=== PATIENT | female | born 1990 | race Caucasian/White ===

== ENCOUNTER 2016-08-20 20:12 | Emergency (ER) | payer OTHER ==
[~2016-08-20] VITALS: Ht 160 cm; Wt 72.0 kg
[~2016-08-20 20:12] MED LIST: AMOXICILLIN500 MG OR; AMOXICILLIN500 MG PO; BENTYL10 MG PO; CEPHALEXIN500 M1 PO; CEPHALEXIN500 MG OR; CLARITHROMYC500 M1 OR; CLARITIN10 M2 PO; DEPO-MEDROL80 MG/ML IM; DOXYCYCL HYC100 M4 PO; FAMVIR500 MG PO; FLEXERIL5 MG PO; IMPLANON68 MG SC; KETOROLAC60 MG/2 ML IJ; LORTAB 10 PO; LORTAB 1010 MG PO; LORTAB 5 OR; LORTAB 5/3255 MG PO; LORTAB 7.5 OR; LORTAB 7.57.5 MG PO; LORTAB5 OR; LORTAB5 PO; MACROBID100 MG OR; MACROBID100 MG PO; MACRODANTIN100 MG OR; MEDDOSEPAK OR; NAPROSYN500 MG PO; NO; NO HOME MEDS; NO MEDS; NORCO1 TA1 PO; ONDANSETRON4 MG OR; ONDANSETRON4 MG PO; PERCOCET 5/325M1 TAB OR; PHENERGAN SUPP RE; PREVACID30 M2 PO; PROMETHAZINE25 M1 RE; PROMETHAZINE25 MG OR; PYRIDIUM200 MG OR; PYRIDIUM200 MG PO; REGLAN10 MG PO; ROBITUSS12 OR; ROBITUSSI2 OR; ROBITUSSIN AC10 ML PO; TORADOL OR; TORADOL PO; ULTRAM50 M1 PO; ULTRAM50 MG OR; UNKNOWN ANTIBIOTIC; ZOFRAN ODT4 MG OR; ZOFRAN ODT4 MG PO; ZOFRAN ODT8 MG SL; ZOFRAN4 M1 OR; ZOVIRAX51 EX
[2016-08-20] MEDS ORDERED: PERCOCET 5/325M1 TAB PO (23:42)
[2016-08-21 00:21] VITALS: BP 116/70
== END 2016-08-20 23:58 | disposition home or self-care (01) | DRG 563 ==
LOC: ED 20:12
DX: S93.401A Sprain of unspecified ligament of right ankle, initial encounter (principal); X50.1XXA Overexertion from prolonged static or awkward postures, initial encounter

== ENCOUNTER 2017-05-18 18:15 | Emergency (ER) | payer OTHER ==
[~2017-05-18] VITALS: Ht 160 cm; Wt 75.0 kg
[~2017-05-18 18:15] MED LIST changes: +PERCOCET 5/325M1 TAB PO
[2017-05-18 21:16] LABS: INFLUENZA A NONE DETECTED (NONE DETECT); INFLUENZA B NONE DETECTED (NONE DETECT)
[2017-05-18 22:07] LABS: URINE BILIRUBIN - DIPSTICK NEGATIVE (NEGATIVE); URINE BLOOD DIPSTICK TRACE-LYSED (NEGATIVE); URINE COLOR YELLOW; URINE GLUCOSE - DIPSTICK NEGATIVE (NEGATIVE); URINE KETONE TRACE mg/dL (NEGATIVE); URINE NITRITE - DIPSTICK NEGATIVE (Negative); URINE PH 5.5 (4.5-8.0); URINE PROTEIN - DIPSTICK NEGATIVE (NEG-TRACE); URINE SPECIFIC GRAVITY >=1.030; URINE UROBILINOGEN - DIPSTICK 0.2 E.U./dL (0.2)
[2017-05-18 22:08] LABS: HCG SERUM/URINE (NEG/POS) NEGATIVE (NEGATIVE)
[2017-05-18 22:09] LABS: URINE BACTERIA RARE hpf; URINE CLARITY CLEAR; URINE LEUK ESTERASE SMALL (NEGATIVE); URINE SQUAMOUS EPITHELIAL CELL FEW EPI/hpf (0-FEW)
[2017-05-18] MEDS ORDERED: CEPHALEXIN500 MG PO (22:15)
[2017-05-18] MEDS ORDERED: ROBITUSSIN AC10 ML PO (22:15)
[2017-05-18 22:27] VITALS: BP 145/94
== END 2017-05-18 22:30 | disposition home or self-care (01) | DRG 153 ==
LOC: ED 18:15
PROVIDERS: Emergency Medicine
DX: J02.9 Acute pharyngitis, unspecified (principal); I88.9 Nonspecific lymphadenitis, unspecified; N39.0 Urinary tract infection, site not specified; F17.210 Nicotine dependence, cigarettes, uncomplicated; H92.01 Otalgia, right ear; R05 Cough; R09.89 Other specified symptoms and signs involving the circulatory and respiratory systems; R51 Headache

== ENCOUNTER 2017-06-13 00:52 | Emergency (ER) | payer OTHER ==
[~2017-06-13] VITALS: Ht 160 cm; Wt 91.6 kg
[~2017-06-13 00:52] MED LIST changes: +CEPHALEXIN500 MG PO
[2017-06-13] MEDS ORDERED: IBUPROFEN600 MG PO (01:13)
[2017-06-13 02:08] LABS: INFLUENZA A NONE DETECTED (NONE DETECT); INFLUENZA B NONE DETECTED (NONE DETECT)
[2017-06-13] MEDS ORDERED: PERCOCET 5/325M1 TAB PO (02:57)
[2017-06-13] MEDS ORDERED: AUGMENTIN875TAB PO (02:57)
[2017-06-13] MEDS ORDERED: CODEINE/GUAIFEN1 SOL PO (02:57)
[2017-06-13 03:12] VITALS: BP 117/79
[2017-06-13] MEDS ORDERED: ZOFRAN4 M1 PO (11:46)
[2017-06-13] MEDS ORDERED: PROAIR HFA108 MCG/AC PO (11:46)
== END 2017-06-13 03:13 | disposition home or self-care (01) | DRG 153 ==
LOC: ED 00:52
PROVIDERS: Emergency Medicine
DX: H66.93 Otitis media, unspecified, bilateral (principal); F17.210 Nicotine dependence, cigarettes, uncomplicated; J40 Bronchitis, not specified as acute or chronic; R05 Cough; R09.81 Nasal congestion; R50.9 Fever, unspecified; R09.89 Other specified symptoms and signs involving the circulatory and respiratory systems; R10.84 Generalized abdominal pain
CPT/HCPCS: Q9967

== ENCOUNTER 2017-06-13 11:17 | Emergency (ER) | payer OTHER ==
[~2017-06-13] VITALS: Ht 160 cm; Wt 90.2 kg
[~2017-06-13 11:17] MED LIST changes: +AUGMENTIN875TAB PO; +CODEINE/GUAIFEN1 SOL PO; +IBUPROFEN600 MG PO
[2017-06-13] MEDS ORDERED: PROAIR HFA108 MCG/AC PO (11:46)
[2017-06-13] MEDS ORDERED: ZOFRAN4 M1 PO (11:46)
[2017-06-13 12:03] VITALS: BP 140/80
[2017-06-13 13:04] LABS: HEMOGLOBIN 15.4 g/dl (12.0-16.0); IMMATURE GRANULOCYTES 0.3 % (0.0-1.0); MEAN CELL VOLUME 90.8 fL CALC (80.0-100.0); MEAN CORPUSCULAR HGB 30.8 pG CALC (26.0-32.0); MEAN CORPUSCULAR HGB CONC 33.9 g/L CALC (32.0-36.0); NEUT# 6.32 thou/uL (2.00-7.15); RED CELL DISTRI WIDTH 12.5 % (11.5-15.5)
[2017-06-13 13:09] LABS: HEMATOCRIT 45.4 % (37.0-47.0)
[2017-06-13 13:21] LABS: ALBUMIN 4.8 g/dL (3.2-5.0); ALKALINE PHOSPHATASE 84 u/l (38-126); ANION GAP 18 (6-22 (CALC)); BILIRUBIN, TOTAL 0.6 mg/dL (0.0-1.4); BUN 16 mg/dL (7-17); BUN/CREATININE RATIO 25 (12-20 (CALC)); CARBON DIOXIDE 24 mmol/l (22-30); CHLORIDE 102 mmol/l (95-108); CREATININE 0.7 mg/dL (0.5-1.0); GFR > 60 ML/MIN (>=60 (CALC)); GFR FOR AFR.AMER. > 60 ML/MIN (>=60 (CALC)); POTASSIUM 3.8 mmol/l (3.5-5.1); SGOT/AST 22 u/l (14-36); SGPT/ALT 39 u/l (9-52); SODIUM 140 mmol/l (137-146); TOTAL PROTEIN 8.1 g/dL (6.3-8.2)
[2017-06-13 13:39] LABS: LIPASE 45 u/l (23-300)
== END 2017-06-13 15:05 | disposition home or self-care (01) | DRG 203 ==
LOC: ED 11:17
PROVIDERS: Family Medicine
DX: J40 Bronchitis, not specified as acute or chronic (principal); F17.210 Nicotine dependence, cigarettes, uncomplicated; R05 Cough; R11.2 Nausea with vomiting, unspecified; R10.84 Generalized abdominal pain
CPT/HCPCS: Q9967

== ENCOUNTER 2017-11-28 12:40 | Emergency (ER) | payer OTHER ==
[~2017-11-28] VITALS: Ht 160 cm; Wt 75.0 kg
[~2017-11-28 12:40] MED LIST changes: +MOTRIN400 MG PO; +PROAIR HFA108 MCG/AC PO; +VOLTAREN1%GEL TOP; +ZOFRAN4 M1 PO
[2017-11-28] MEDS ORDERED: METRONIDAZOLE250 MG PO (13:05)
[2017-11-28 13:56] LABS: HEMATOCRIT 40.6 % (37.0-47.0); HEMOGLOBIN 13.8 g/dl (12.0-16.0); IMMATURE GRANULOCYTES 0.3 % (0.0-5.0); MEAN CELL VOLUME 91.4 fL CALC (80.0-100.0); MEAN CORPUSCULAR HGB 31.1 pG CALC (26.0-32.0); NEUT# 4.19 thou/uL (2.00-7.15); RED BLOOD COUNT 4.44 mill/uL (4.20-5.60); RED CELL DISTRI WIDTH 12.5 % (11.5-15.5)
[2017-11-28 14:23] LABS: ALBUMIN 4.1 g/dL (3.2-5.0); ALKALINE PHOSPHATASE 68 u/l (38-126); ANION GAP 16 (6-22 (CALC)); BILIRUBIN, TOTAL 0.3 mg/dL (0.0-1.4); BUN 17 mg/dL (7-17); BUN/CREATININE RATIO 23 (12-20 (CALC)); CARBON DIOXIDE 24 mmol/l (22-30); CHLORIDE 105 mmol/l (95-108); CREATININE 0.8 mg/dL (0.5-1.0); GFR > 60 ML/MIN (>=60 (CALC)); GFR FOR AFR.AMER. > 60 ML/MIN (>=60 (CALC)); POTASSIUM 3.7 mmol/l (3.5-5.1); SGOT/AST 19 u/l (14-36); SGPT/ALT 35 u/l (9-52); SODIUM 142 mmol/l (137-146); TOTAL PROTEIN 7.1 g/dL (6.3-8.2)
[2017-11-28 15:04] LABS: URINE BILIRUBIN - DIPSTICK NEGATIVE (NEGATIVE); URINE BLOOD DIPSTICK NEGATIVE (NEGATIVE); URINE COLOR YELLOW; URINE GLUCOSE - DIPSTICK NEGATIVE (NEGATIVE); URINE KETONE NEGATIVE (NEGATIVE); URINE LEUK ESTERASE TRACE (NEGATIVE); URINE PROTEIN - DIPSTICK NEGATIVE (NEG-TRACE); URINE SPECIFIC GRAVITY 1.015; URINE UROBILINOGEN - DIPSTICK 0.2 E.U./dL (0.2)
[2017-11-28 15:09] LABS: URINE CLARITY CLEAR; URINE NITRITE - DIPSTICK POSITIVE (Negative)
[2017-11-28 15:19] LABS: URINE RBC 0-2 RBC/hpf (0-5); URINE SQUAMOUS EPITHELIAL CELL FEW EPI/hpf (0-FEW)
[2017-11-28 15:46] LABS: BARBITURATES NEGATIVE (NEGATIVE); COCAINE NEGATIVE (NEGATIVE); METHADONE NEGATIVE (NEGATIVE); OXCYCODONE NEGATIVE (NEGATIVE); TETRAHYDROCANNABIONOL POSITIVE (NEGATIVE); TRICYLIC ANTIDEPRESSANTS NEGATIVE (NEGATIVE)
[2017-11-28] MEDS ORDERED: DOXYCYC MONO100 M1 PO (17:00)
[2017-11-28] MEDS ORDERED: TORADOL PO (17:00)
[2017-11-28 17:27] VITALS: BP 109/69
== END 2017-11-28 17:27 | disposition home or self-care (01) ==
LOC: ED 12:40
PROVIDERS: Emergency Medicine
DX: N73.9 Female pelvic inflammatory disease, unspecified (principal); R10.2 Pelvic and perineal pain; F17.210 Nicotine dependence, cigarettes, uncomplicated

== ENCOUNTER 2018-06-12 15:20 | Emergency (ER) | payer OTHER ==
[~2018-06-12] VITALS: Ht 160 cm; Wt 78.0 kg
[~2018-06-12 15:20] MED LIST changes: +DOXYCYC MONO100 M1 PO; +METRONIDAZOLE250 MG PO
[2018-06-12] MEDS ORDERED: MOTRIN400 MG PO (16:19)
[2018-06-12 16:57] VITALS: BP 129/74
== END 2018-06-12 16:57 | disposition home or self-care (01) ==
LOC: ED 15:20
DX: S93.402A Sprain of unspecified ligament of left ankle, initial encounter (principal); M25.572 Pain in left ankle and joints of left foot; R50.9 Fever, unspecified; R22.42 Localized swelling, mass and lump, left lower limb

== ENCOUNTER 2018-10-05 10:24 | Emergency (ER) | payer OTHER ==
[~2018-10-05] VITALS: Ht 160 cm; Wt 85.0 kg
[2018-10-05] MEDS ORDERED: DOXYCYC MONO100 M2 PO (10:36)
[2018-10-05 11:14] VITALS: BP 141/78
== END 2018-10-05 11:14 | disposition home or self-care (01) ==
LOC: ED 10:24
DX: L05.91 Pilonidal cyst without abscess (principal); F17.200 Nicotine dependence, unspecified, uncomplicated

== ENCOUNTER 2018-10-29 07:15 | Day surgery (SDC) | payer OTHER ==
[~2018-10-29 07:15] MED LIST changes: +DOXYCYC MONO100 M2 PO
[2018-10-29] MEDS ORDERED: PERCOCET 5/325M1 TAB PO (10:19)
[2018-10-29 11:22] VITALS: BP 101/56
== END 2018-10-29 11:35 | disposition home or self-care (01) ==
LOC: ORM 07:15
PROVIDERS: ATTEND Surgery
DX: L05.01 Pilonidal cyst with abscess (principal); F17.210 Nicotine dependence, cigarettes, uncomplicated
CPT/HCPCS: C9290

== ENCOUNTER 2018-11-02 19:18 | Emergency (ER) | payer OTHER ==
[~2018-11-02] VITALS: Ht 160 cm; Wt 80.0 kg
[2018-11-02 19:41] VITALS: BP 129/81
== END 2018-11-02 19:47 | disposition home or self-care (01) ==
LOC: ED 19:18
DX: Z48.01 Encounter for change or removal of surgical wound dressing (principal)

== ENCOUNTER 2019-10-26 12:18 | Emergency (ER) | payer OTHER ==
[~2019-10-26] VITALS: Ht 160 cm; Wt 95.0 kg
[2019-10-26 12:33] VITALS: BP 140/76
[2019-10-26] MEDS ORDERED: MACROBID100 MG PO (12:39)
[2019-10-26 13:15] LABS: HEMATOCRIT 41.1 % (37.0-47.0); HEMOGLOBIN 13.5 g/dl (12.0-16.0); IMMATURE GRANULOCYTES 0.2 % (0.0-5.0); MEAN CELL VOLUME 92.4 fL CALC (80.0-100.0); MEAN CORPUSCULAR HGB 30.3 pG CALC (26.0-32.0); MEAN CORPUSCULAR HGB CONC 32.8 g/dL CAL (32.0-36.0); NEUT# 4.27 thou/uL (2.00-7.15); RED BLOOD COUNT 4.45 mill/uL (4.20-5.60); RED CELL DISTRI WIDTH 12.5 % (11.5-15.5)
[2019-10-26 13:32] LABS: ALBUMIN 4.5 g/dL (3.2-5.0); ALKALINE PHOSPHATASE 75 u/l (38-126); ANION GAP 11 (6-22 (CALC)); BILIRUBIN, TOTAL 0.4 mg/dL (0.0-1.4); BUN 14 mg/dL (7-17); BUN/CREATININE RATIO 21 (12-20 (CALC)); CARBON DIOXIDE 21 mmol/l (22-30); CHLORIDE 105 mmol/l (95-108); CREATININE 0.7 mg/dL (0.5-1.0); GFR > 60 ML/MIN (>=60 (CALC)); GFR FOR AFR.AMER. > 60 ML/MIN (>=60 (CALC)); HCG SERUM/URINE (NEG/POS) NEGATIVE (NEGATIVE); LIPASE 75 u/l (23-300); POTASSIUM 3.8 mmol/l (3.5-5.1); SGOT/AST 30 u/l (14-36); TOTAL PROTEIN 7.1 g/dL (6.3-8.2); URINE BILIRUBIN - DIPSTICK NEGATIVE (NEGATIVE); URINE BLOOD DIPSTICK NEGATIVE (NEGATIVE); URINE COLOR YELLOW; URINE GLUCOSE - DIPSTICK NEGATIVE (NEGATIVE); URINE KETONE NEGATIVE (NEGATIVE); URINE NITRITE - DIPSTICK NEGATIVE (Negative); URINE PROTEIN - DIPSTICK NEGATIVE (NEG-TRACE); URINE SPECIFIC GRAVITY 1.025; URINE UROBILINOGEN - DIPSTICK 0.2 E.U./dL (0.2)
[2019-10-26 13:33] LABS: URINE LEUK ESTERASE SMALL (NEGATIVE)
[2019-10-26 13:35] LABS: SODIUM 133 mmol/l (137-146)
[2019-10-26 13:41] LABS: URINE BACTERIA RARE hpf; URINE SQUAMOUS EPITHELIAL CELL FEW EPI/hpf (0-FEW)
== END 2019-10-26 13:20 | disposition left against medical advice (07) ==
LOC: ED 12:18
DX: R10.31 Right lower quadrant pain (principal); R10.32 Left lower quadrant pain; R11.2 Nausea with vomiting, unspecified; R19.7 Diarrhea, unspecified; F17.200 Nicotine dependence, unspecified, uncomplicated; Z91.19 Patient's noncompliance with other medical treatment and regimen; Z20.828 Contact with and (suspected) exposure to other viral communicable diseases

== ENCOUNTER 2020-04-18 22:29 | Emergency (ER) | payer OTHER ==
[~2020-04-18] VITALS: Ht 160 cm; Wt 72.2 kg
[2020-04-18] MEDS ORDERED: ZOFRAN4 MG/TAB PO (22:55)
[2020-04-18] MEDS ORDERED: PRILOSEC OTC20 MG PO (22:56)
[2020-04-18] MEDS ORDERED: IMITREX25 MG PO (22:56)
[2020-04-18 23:26] LABS: HEMATOCRIT 40.5 % (37.0-47.0); HEMOGLOBIN 13.3 g/dl (12.0-16.0); IMMATURE GRANULOCYTES 0.2 % (0.0-5.0); MEAN CELL VOLUME 91.8 fL CALC (80.0-100.0); MEAN CORPUSCULAR HGB 30.2 pG CALC (26.0-32.0); MEAN CORPUSCULAR HGB CONC 32.8 g/dL CAL (32.0-36.0); NEUT# 3.72 thou/uL (2.00-7.15); RED BLOOD COUNT 4.41 mill/uL (4.20-5.60); RED CELL DISTRI WIDTH 12.8 % (11.5-15.5)
[2020-04-19 00:03] LABS: ALBUMIN 4.2 g/dL (3.2-5.0); ALKALINE PHOSPHATASE 73 u/l (38-126); AMYLASE 42 u/l (30-110); ANION GAP 11 (6-22 (CALC)); BILIRUBIN, TOTAL 0.3 mg/dL (0.0-1.4); BUN 24 mg/dL (7-17); BUN/CREATININE RATIO 25 (12-20 (CALC)); CARBON DIOXIDE 23 mmol/l (22-30); CHLORIDE 109 mmol/l (95-108); CREATININE 0.9 mg/dL (0.5-1.0); GFR > 60 ML/MIN (>=60 (CALC)); GFR FOR AFR.AMER. > 60 ML/MIN (>=60 (CALC)); LIPASE 98 u/l (23-300); POTASSIUM 3.8 mmol/l (3.5-5.1); SGOT/AST 25 u/l (14-36); SODIUM 139 mmol/l (137-146); TOTAL PROTEIN 7.2 g/dL (6.3-8.2)
[2020-04-19 00:33] LABS: TSH, 3RD GENERATION 3.32 uIU/mL (0.47 - 4.68)
[2020-04-19 00:59] LABS: URINE BILIRUBIN - DIPSTICK NEGATIVE (NEGATIVE); URINE BLOOD DIPSTICK NEGATIVE (NEGATIVE); URINE COLOR YELLOW; URINE GLUCOSE - DIPSTICK NEGATIVE (NEGATIVE); URINE KETONE NEGATIVE (NEGATIVE); URINE LEUK ESTERASE NEGATIVE (NEGATIVE); URINE NITRITE - DIPSTICK NEGATIVE (Negative); URINE PROTEIN - DIPSTICK NEGATIVE (NEG-TRACE); URINE SPECIFIC GRAVITY 1.025; URINE UROBILINOGEN - DIPSTICK 0.2 E.U./dL (0.2)
[2020-04-19] MEDS ORDERED: PROVERA10 MG PO (01:22)
[2020-04-19 01:40] VITALS: BP 104/52
== END 2020-04-19 01:43 | disposition home or self-care (01) ==
LOC: ED 22:29
PROVIDERS: Family Medicine
DX: R10.31 Right lower quadrant pain (principal); R10.32 Left lower quadrant pain; N93.8 Other specified abnormal uterine and vaginal bleeding; F17.210 Nicotine dependence, cigarettes, uncomplicated
CPT/HCPCS: Q9967

== ENCOUNTER 2021-02-13 04:39 | Emergency (ER) | payer OTHER ==
[~2021-02-13] VITALS: Ht 157.5 cm; Wt 90.0 kg
[~2021-02-13 04:39] MED LIST changes: +IMITREX25 MG PO; +PRILOSEC OTC20 MG PO; +PROVERA10 MG PO; +ZOFRAN4 MG/TAB PO
[2021-02-13] MEDS ORDERED: NAPROXEN500 MG PO (05:27)
[2021-02-13 05:45] VITALS: BP 136/88
== END 2021-02-13 06:04 | disposition home or self-care (01) ==
LOC: ED 04:39
DX: S93.602A Unspecified sprain of left foot, initial encounter (principal); F17.200 Nicotine dependence, unspecified, uncomplicated; W50.0XXA Accidental hit or strike by another person, initial encounter; Y93.89 Activity, other specified; Y92.838 Other recreation area as the place of occurrence of the external cause; Y99.0 Civilian activity done for income or pay

== ENCOUNTER 2021-11-13 14:48 | Emergency (ER) | payer OTHER ==
[2021-11-13] VITALS (12 sets, daily range): BP systolic 98–156; BP diastolic 55–110
[~2021-11-13] VITALS: Ht 157.5 cm; Wt 83.0 kg
[~2021-11-13 14:48] MED LIST changes: +NAPROXEN500 MG PO
[2021-11-13 15:12] LABS: HEMATOCRIT 48.3 % (37.0-47.0); HEMOGLOBIN 16.3 g/dl (12.0-16.0); IMMATURE GRANULOCYTES 0.1 % (0.0-5.0); MEAN CELL VOLUME 89.4 fL CALC (80.0-100.0); MEAN CORPUSCULAR HGB 30.2 pG CALC (26.0-32.0); MEAN CORPUSCULAR HGB CONC 33.7 g/dL CAL (32.0-36.0); NEUT# 4.03 thou/uL (2.00-7.15); RED BLOOD COUNT 5.4 mill/uL (4.20-5.60); RED CELL DISTRI WIDTH 12.8 % (11.5-15.5)
[2021-11-13 15:26] LABS: ALBUMIN 4.9 g/dL (3.2-5.0); ALKALINE PHOSPHATASE 97 u/l (38-126); ANION GAP 15 (6-22 (CALC)); BILIRUBIN, TOTAL 0.6 mg/dL (0.0-1.4); BUN 16 mg/dL (7-17); BUN/CREATININE RATIO 17 (12-20 (CALC)); CARBON DIOXIDE 22 mmol/l (22-30); CHLORIDE 104 mmol/l (95-108); GFR FOR AFR.AMER. > 60 ML/MIN (>=60 (CALC)); GFR OTHER RACES > 60 ML/MIN (>=60 (CALC)); LIPASE 73 u/l (23-300); POTASSIUM 3.8 mmol/l (3.5-5.1); SGOT/AST 26 u/l (14-36); SODIUM 137 mmol/l (137-146); TOTAL PROTEIN 8.6 g/dL (6.3-8.2)
[2021-11-13] MEDS ORDERED: CYMBALTA20 MG PO (17:10)
[2021-11-13] MEDS ORDERED: ZOFRAN4 MG/TAB PO (17:55)
[2021-11-13] MEDS ORDERED: HYOSCYAMINE0.125 M3 PO (17:55)
[2021-11-13] MEDS ORDERED: AMOX/K CLAV875 M1 PO (17:55)
[2021-11-14] MEDS ORDERED: CYMBALTA20 MG PO (13:25)
[2021-11-14] MEDS ORDERED: PROTONIX40 M2 PO (14:12)
[2021-11-14] MEDS ORDERED: REGLAN10 MG PO (14:12)
== END 2021-11-13 18:31 | disposition home or self-care (01) ==
LOC: ED 14:48
PROVIDERS: Family Medicine
DX: K52.9 Noninfective gastroenteritis and colitis, unspecified (principal); M79.7 Fibromyalgia; F17.200 Nicotine dependence, unspecified, uncomplicated; Z88.1 Allergy status to other antibiotic agents
CPT/HCPCS: Q9967

== ENCOUNTER 2021-11-19 02:23 | Emergency (ER) | payer OTHER ==
[~2021-11-19] VITALS: Ht 157.5 cm; Wt 81.0 kg
[2021-11-19] VITALS (7 sets, daily range): BP systolic 111–142; BP diastolic 72–89
[~2021-11-19 02:23] MED LIST changes: +AMOX/K CLAV875 M1 PO; +CYMBALTA20 MG PO; +HYOSCYAMINE0.125 M3 PO; +PROTONIX40 M2 PO
[2021-11-19 03:03] LABS: IMMATURE GRANULOCYTES 0.1 % (0.0-5.0); MEAN CELL VOLUME 92.2 fL CALC (80.0-100.0); MEAN CORPUSCULAR HGB 30.4 pG CALC (26.0-32.0); NEUT# 3.26 thou/uL (2.00-7.15); RED BLOOD COUNT 4.34 mill/uL (4.20-5.60); RED CELL DISTRI WIDTH 13.1 % (11.5-15.5)
[2021-11-19 03:08] LABS: HEMOGLOBIN 13.2 g/dl (12.0-16.0)
[2021-11-19 03:16] LABS: ALBUMIN 3.8 g/dL (3.2-5.0); ALKALINE PHOSPHATASE 71 u/l (38-126); AMYLASE 55 u/l (30-110); ANION GAP 10 (6-22 (CALC)); BUN 19 mg/dL (7-17); BUN/CREATININE RATIO 18 (12-20 (CALC)); CARBON DIOXIDE 24 mmol/l (22-30); CHLORIDE 110 mmol/l (95-108); CREATININE 1.1 mg/dL (0.5-1.0); GFR FOR AFR.AMER. > 60 ML/MIN (>=60 (CALC)); GFR OTHER RACES 58 ML/MIN (>=60 (CALC)); LIPASE 84 u/l (23-300); POTASSIUM 3.5 mmol/l (3.5-5.1); SGOT/AST 21 u/l (14-36); SODIUM 140 mmol/l (137-146); TOTAL PROTEIN 6.6 g/dL (6.3-8.2)
[2021-11-19 03:17] LABS: BILIRUBIN, TOTAL 0.2 mg/dL (0.0-1.4)
[2021-11-19 03:48] LABS: URINE BILIRUBIN - DIPSTICK NEGATIVE (NEGATIVE); URINE BLOOD DIPSTICK TRACE-INTACT (NEGATIVE); URINE COLOR YELLOW; URINE GLUCOSE - DIPSTICK NEGATIVE (NEGATIVE); URINE KETONE TRACE mg/dL (NEGATIVE); URINE LEUK ESTERASE NEGATIVE (NEGATIVE); URINE PH 7.5 (4.5-8.0); URINE PROTEIN - DIPSTICK NEGATIVE (NEG-TRACE); URINE SPECIFIC GRAVITY 1.015; URINE UROBILINOGEN - DIPSTICK 0.2 E.U./dL (0.2)
[2021-11-19 03:54] LABS: URINE NITRITE - DIPSTICK NEGATIVE (Negative)
[2021-11-19] MEDS ORDERED: ULTRAM50 M1 PO (05:36)
[2021-11-19] MEDS ORDERED: ZOFRAN4 MG/TAB PO (05:36)
== END 2021-11-19 06:06 | disposition home or self-care (01) ==
LOC: ED 02:23
PROVIDERS: Emergency Medicine
DX: K29.70 Gastritis, unspecified, without bleeding (principal); K52.9 Noninfective gastroenteritis and colitis, unspecified; F17.200 Nicotine dependence, unspecified, uncomplicated; Z20.822 Contact with and (suspected) exposure to COVID-19
CPT/HCPCS: Q9967

== ENCOUNTER 2021-12-02 12:40 | Observation (INO) | payer OTHER ==
[2021-12-02 19:00] VITALS: BP 133/71
[2021-12-03 04:26] VITALS: BP 128/83
[2021-12-03 05:27] LABS: HEMATOCRIT 39.2 % (37.0-47.0); IMMATURE GRANULOCYTES 0.1 % (0.0-5.0); MEAN CELL VOLUME 91.4 fL CALC (80.0-100.0); MEAN CORPUSCULAR HGB 30.3 pG CALC (26.0-32.0); MEAN CORPUSCULAR HGB CONC 33.2 g/dL CAL (32.0-36.0); NEUT# 4.3 thou/uL (2.00-7.15); RED BLOOD COUNT 4.29 mill/uL (4.20-5.60); RED CELL DISTRI WIDTH 12.8 % (11.5-15.5)
[2021-12-03 06:07] LABS: ANION GAP 12 (6-22 (CALC)); BUN 16 mg/dL (7-17); BUN/CREATININE RATIO 18 (12-20 (CALC)); CARBON DIOXIDE 22 mmol/l (22-30); CHLORIDE 108 mmol/l (95-108); CREATININE 0.9 mg/dL (0.5-1.0); GFR FOR AFR.AMER. > 60 ML/MIN (>=60 (CALC)); GFR OTHER RACES > 60 ML/MIN (>=60 (CALC)); POTASSIUM 3.9 mmol/l (3.5-5.1); SODIUM 138 mmol/l (137-146)
[2021-12-03 06:19] VITALS: BP 117/82
[2021-12-03] MEDS ORDERED: PERCOCET 5/321 COMBO PO (09:45)
[2021-12-03 11:16] VITALS: BP 129/79
[2021-12-03 11:30] VITALS: BP 112/76
== END 2021-12-03 13:42 | disposition home or self-care (01) ==
LOC: MS2 12:40
PROVIDERS: ADMIT Surgery; ATTEND Surgery
DX: K80.12 Calculus of gallbladder with acute and chronic cholecystitis without obstruction (principal); F17.210 Nicotine dependence, cigarettes, uncomplicated
CPT/HCPCS: G0378; G0379; J0131; J1610; Q9967

== ENCOUNTER 2021-12-06 21:41 | Emergency (ER) | payer OTHER ==
[~2021-12-06] VITALS: Ht 157.5 cm; Wt 80.0 kg
[~2021-12-06 21:41] MED LIST changes: +PERCOCET 5/321 COMBO PO
[2021-12-06 22:30] VITALS: BP 147/91
[2021-12-06 22:45] VITALS: BP 133/79
[2021-12-06 23:00] VITALS: BP 131/88
[2021-12-06 23:02] LABS: HEMATOCRIT 39.5 % (37.0-47.0); HEMOGLOBIN 13.4 g/dl (12.0-16.0); IMMATURE GRANULOCYTES 0.2 % (0.0-5.0); MEAN CELL VOLUME 89.6 fL CALC (80.0-100.0); MEAN CORPUSCULAR HGB 30.4 pG CALC (26.0-32.0); MEAN CORPUSCULAR HGB CONC 33.9 g/dL CAL (32.0-36.0); NEUT# 8.62 thou/uL (2.00-7.15); RED BLOOD COUNT 4.41 mill/uL (4.20-5.60); RED CELL DISTRI WIDTH 12.8 % (11.5-15.5)
[2021-12-06 23:14] LABS: ALBUMIN 4.3 g/dL (3.2-5.0); ALKALINE PHOSPHATASE 124 u/l (38-126); ANION GAP 16 (6-22 (CALC)); BILIRUBIN, TOTAL 0.4 mg/dL (0.0-1.4); BUN 14 mg/dL (7-17); BUN/CREATININE RATIO 16 (12-20 (CALC)); CARBON DIOXIDE 21 mmol/l (22-30); CHLORIDE 101 mmol/l (95-108); CREATININE 0.9 mg/dL (0.5-1.0); GFR FOR AFR.AMER. > 60 ML/MIN (>=60 (CALC)); GFR OTHER RACES > 60 ML/MIN (>=60 (CALC)); LIPASE 24 u/l (23-300); POTASSIUM 3.8 mmol/l (3.5-5.1); SGOT/AST 151 u/l (14-36); SODIUM 134 mmol/l (137-146); TOTAL PROTEIN 7.7 g/dL (6.3-8.2)
[2021-12-06 23:15] VITALS: BP 133/84
[2021-12-06 23:30] VITALS: BP 131/78
[2021-12-07] VITALS (9 sets, daily range): BP systolic 106–130; BP diastolic 59–73
[2021-12-07 00:16] LABS: URINE BILIRUBIN - DIPSTICK NEGATIVE (NEGATIVE); URINE BLOOD DIPSTICK NEGATIVE (NEGATIVE); URINE COLOR YELLOW; URINE GLUCOSE - DIPSTICK NEGATIVE (NEGATIVE); URINE KETONE 15 mg/dL (NEGATIVE); URINE LEUK ESTERASE NEGATIVE (NEGATIVE); URINE PROTEIN - DIPSTICK NEGATIVE (NEG-TRACE); URINE SPECIFIC GRAVITY 1.015; URINE UROBILINOGEN - DIPSTICK 0.2 E.U./dL (0.2)
[2021-12-07 00:19] LABS: URINE NITRITE - DIPSTICK NEGATIVE (Negative)
[2021-12-07] MEDS ORDERED: PROMETHAZINE HY25 M1 PO (01:02)
[2021-12-07] MEDS ORDERED: PERCOCET 10/31 COMBO PO (01:02)
== END 2021-12-07 03:11 | disposition home or self-care (01) ==
LOC: ED 21:41
PROVIDERS: Family Medicine
DX: A08.4 Viral intestinal infection, unspecified (principal); M79.7 Fibromyalgia; F17.200 Nicotine dependence, unspecified, uncomplicated; Z90.49 Acquired absence of other specified parts of digestive tract
CPT/HCPCS: Q9967

== ENCOUNTER 2022-05-16 13:09 | Emergency (ER) | payer OTHER ==
[~2022-05-16] VITALS: Ht 157.5 cm; Wt 98.2 kg
[2022-05-16] VITALS (10 sets, daily range): BP systolic 127–151; BP diastolic 78–105
[~2022-05-16 13:09] MED LIST changes: +PERCOCET 10/31 COMBO PO; +PROMETHAZINE HY25 M1 PO
[2022-05-16] MEDS ORDERED: HYDROCO/APAP1 TA9 PO (16:29)
[2022-05-16] MEDS ORDERED: NAPROXEN500 MG PO (16:29)
== END 2022-05-16 16:50 | disposition home or self-care (01) ==
LOC: ED 13:09
DX: S80.02XA Contusion of left knee, initial encounter (principal); W10.9XXA Fall (on) (from) unspecified stairs and steps, initial encounter

== ENCOUNTER 2022-08-30 18:17 | Emergency (ER) | payer OTHER ==
[~2022-08-30] VITALS: Ht 157.5 cm; Wt 78.0 kg
[2022-08-30] VITALS (9 sets, daily range): BP systolic 116–143; BP diastolic 65–110
[~2022-08-30 18:17] MED LIST changes: +HYDROCO/APAP1 TA9 PO
[2022-08-30 21:19] LABS: URINE BILIRUBIN - DIPSTICK NEGATIVE (NEGATIVE); URINE BLOOD DIPSTICK SMALL (NEGATIVE); URINE COLOR YELLOW; URINE GLUCOSE - DIPSTICK NEGATIVE (NEGATIVE); URINE KETONE NEGATIVE (NEGATIVE); URINE LEUK ESTERASE NEGATIVE (NEGATIVE); URINE PH 5.5 (4.5-8.0); URINE PROTEIN - DIPSTICK NEGATIVE (NEG-TRACE); URINE SPECIFIC GRAVITY >=1.030; URINE UROBILINOGEN - DIPSTICK 0.2 E.U./dL (0.2)
[2022-08-30 21:20] LABS: URINE NITRITE - DIPSTICK NEGATIVE (Negative)
[2022-08-30 21:27] LABS: URINE SQUAMOUS EPITHELIAL CELL FEW EPI/hpf (0-FEW)
[2022-08-30 21:37] LABS: BASO% 0.6 % (0-3); EOS% 3.5 % (0-8); HEMATOCRIT 45.2 % (37.0-47.0); IMMATURE GRANULOCYTES 0.1 % (0.0-5.0); LYMPH% 47.1 % (15-41); MEAN CELL VOLUME 91.5 fL CALC (80.0-100.0); MEAN CORPUSCULAR HGB 30.4 pG CALC (26.0-32.0); MEAN CORPUSCULAR HGB CONC 33.2 g/dL CAL (32.0-36.0); MONO% 5.7 % (2-13); NEUT# 3.76 thou/uL (2.00-7.15); RED BLOOD COUNT 4.94 mill/uL (4.20-5.60); RED CELL DISTRI WIDTH 12.7 % (11.5-15.5)
[2022-08-30 21:46] LABS: HCG SERUM/URINE (NEG/POS) NEGATIVE (NEGATIVE)
[2022-08-30 21:52] LABS: ALBUMIN 4.8 g/dL (3.2-5.0); ALKALINE PHOSPHATASE 80 u/l (38-126); AMYLASE 43 u/l (30-110); ANION GAP 16 (6-22 (CALC)); BILIRUBIN, TOTAL 0.5 mg/dL (0.02-1.3); BUN 19 mg/dL (7-17); BUN/CREATININE RATIO 22 (12-20 (CALC)); CARBON DIOXIDE 22 mmol/l (22-30); CHLORIDE 107 mmol/l (95-108); CREATININE 0.8 mg/dL (0.5-1.0); GFR FOR AFR.AMER. > 60 ML/MIN (>=60 (CALC)); GFR OTHER RACES > 60 ML/MIN (>=60 (CALC)); LIPASE 76 u/l (23-300); POTASSIUM 3.7 mmol/l (3.5-5.1); SODIUM 140 mmol/l (137-146); TOTAL PROTEIN 8.1 g/dL (6.3-8.2)
[2022-08-30 21:53] LABS: SGOT/AST 26 u/l (14-36)
[2022-08-30] MEDS ORDERED: PREVACID30 M1 PO (23:52)
[2022-08-30] MEDS ORDERED: ONDANSETRON4 MG PO (23:52)
[2022-08-30] MEDS ORDERED: ULTRAM50 MG PO (23:52)
[2022-08-31] VITALS: BP 123/74
[2022-08-31 00:02] VITALS: BP 123/74
== END 2022-08-31 00:12 | disposition home or self-care (01) ==
LOC: ED 18:17
PROVIDERS: Emergency Medicine
DX: K29.70 Gastritis, unspecified, without bleeding (principal); M79.7 Fibromyalgia; F17.200 Nicotine dependence, unspecified, uncomplicated; Z20.822 Contact with and (suspected) exposure to COVID-19
CPT/HCPCS: Q9967; S0164

== ENCOUNTER 2022-12-24 22:47 | Emergency (ER) | payer OTHER ==
[~2022-12-24] VITALS: Ht 157.5 cm; Wt 84.0 kg
[~2022-12-24 22:47] MED LIST changes: +PREVACID30 M1 PO; +ULTRAM50 MG PO
[2022-12-24 23:08] VITALS: BP 128/69
[2022-12-24 23:15] VITALS: BP 111/77
[2022-12-24 23:30] VITALS: BP 114/76
[2022-12-24 23:45] VITALS: BP 115/78
[2022-12-25] VITALS: BP 118/67
[2022-12-25] MEDS ORDERED: MOTRIN800 MG PO (01:29)
[2022-12-25 01:45] VITALS: BP 118/67
== END 2022-12-25 01:45 | disposition home or self-care (01) ==
LOC: ED 22:47
DX: M25.571 Pain in right ankle and joints of right foot (principal); F17.210 Nicotine dependence, cigarettes, uncomplicated

== ENCOUNTER 2023-04-05 11:49 | Emergency (ER) | payer OTHER ==
[~2023-04-05] VITALS: Ht 157.5 cm; Wt 95.2 kg
[2023-04-05] VITALS (10 sets, daily range): BP systolic 101–137; BP diastolic 51–86
[~2023-04-05 11:49] MED LIST changes: +MOTRIN800 MG PO
[2023-04-05] MEDS ORDERED: GABAPENTIN300 M2 PO (12:14)
[2023-04-05] MEDS ORDERED: MOTRIN800 MG PO (12:15)
[2023-04-05] MEDS ORDERED: LORTAB 5/3255 MG PO (12:15)
[2023-04-05 12:43] LABS: BASO% 0.8 % (0-3); EOS% 4.3 % (0-8); HEMATOCRIT 44.2 % (37.0-47.0); HEMOGLOBIN 14.8 g/dl (12.0-16.0); IMMATURE GRANULOCYTES 0.2 % (0.0-5.0); LYMPH% 41.3 % (15-41); MEAN CELL VOLUME 90.9 fL CALC (80.0-100.0); MEAN CORPUSCULAR HGB 30.5 pG CALC (26.0-32.0); MEAN CORPUSCULAR HGB CONC 33.5 g/dL CAL (32.0-36.0); MONO% 7.7 % (2-13); NEUT# 2.32 thou/uL (2.00-7.15); NEUT% 45.7 % (42-76); RED BLOOD COUNT 4.86 mill/uL (4.20-5.60); RED CELL DISTRI WIDTH 12.3 % (11.5-15.5)
[2023-04-05 12:48] LABS: URINE BILIRUBIN - DIPSTICK Negative (NEGATIVE); URINE BLOOD DIPSTICK Negative (NEGATIVE); URINE GLUCOSE - DIPSTICK Negative (NEGATIVE); URINE KETONE Negative (NEGATIVE); URINE LEUK ESTERASE Negative (NEGATIVE); URINE NITRITE - DIPSTICK Negative (Negative); URINE PROTEIN - DIPSTICK Negative (NEG-TRACE); URINE UROBILINOGEN - DIPSTICK 0.2 E.U./dL (0.2)
[2023-04-05 12:49] LABS: URINE COLOR Yellow
[2023-04-05 13:02] LABS: ALBUMIN 4.6 g/dL (3.2-5.0); ALKALINE PHOSPHATASE 74 u/l (38-126); ANION GAP 14 (6-22 (CALC)); BILIRUBIN, TOTAL 0.4 mg/dL (0.02-1.3); BUN 17 mg/dL (7-17); BUN/CREATININE RATIO 20 (12-20 (CALC)); CARBON DIOXIDE 21 mmol/l (22-30); CHLORIDE 107 mmol/l (95-108); CREATININE 0.8 mg/dL (0.5-1.0); GFR FOR AFR.AMER. > 60 ML/MIN (>=60 (CALC)); GFR OTHER RACES > 60 ML/MIN (>=60 (CALC)); POTASSIUM 3.9 mmol/l (3.5-5.1); SGOT/AST 36 u/l (14-36); SODIUM 137 mmol/l (137-146)
[2023-04-05 14:16] LABS: LIPASE 43 u/l (23-300)
== END 2023-04-05 17:18 | disposition home or self-care (01) ==
LOC: ED 11:49 → ED-I 16:20 → ED 17:18
PROVIDERS: Emergency Medicine
DX: R55 Syncope and collapse (principal); F17.200 Nicotine dependence, unspecified, uncomplicated; R10.2 Pelvic and perineal pain
CPT/HCPCS: Q9967

== ENCOUNTER 2024-04-19 10:42 | Emergency (ER) | payer OTHER ==
[2024-04-19] VITALS (16 sets, daily range): BP systolic 111–149; BP diastolic 62–91
[~2024-04-19] VITALS: Ht 157.5 cm; Wt 89.3 kg
[~2024-04-19 10:42] MED LIST changes: +GABAPENTIN300 M2 PO
[2024-04-19] MEDS ORDERED: ONDANSETRON HCl 4 MG/2 ML SDV IV ONE (11:05)
[2024-04-19] MEDS ORDERED: KETOROLAC TROMETHAMINE 15 MG/ML SDV IV ONE (11:05)
[2024-04-19 11:29] LABS: BASO% 0.7 % (0-3); EOS% 3.2 % (0-8); HEMATOCRIT 41.9 % (37.0-47.0); HEMOGLOBIN 13.9 g/dl (12.0-16.0); IMMATURE GRANULOCYTES 0.2 % (0.0-5.0); LYMPH% 40.6 % (15-41); MEAN CELL VOLUME 91.3 fL CALC (80.0-100.0); MEAN CORPUSCULAR HGB 30.3 pG CALC (26.0-32.0); MEAN CORPUSCULAR HGB CONC 33.2 g/dL CAL (32.0-36.0); MONO% 8.6 % (2-13); NEUT# 2.59 thou/uL (2.00-7.15); NEUT% 46.7 % (42-76); RED BLOOD COUNT 4.59 mill/uL (4.20-5.60); RED CELL DISTRI WIDTH 12.4 % (11.5-15.5)
[2024-04-19 11:39] LABS: ALBUMIN 4.6 g/dL (3.2-5.0); BILIRUBIN, TOTAL 0.5 mg/dL (0.02-1.3); CREATININE 0.9 mg/dL (0.5-1.0); TOTAL PROTEIN 7.7 g/dL (6.3-8.2)
[2024-04-19] MEDS ORDERED: MAGNESIUM SULFATE HEPTAHYDRATE 50 ML IV ONE (13:05)
== END 2024-04-19 15:14 | disposition home or self-care (01) ==
LOC: ED 10:42
PROVIDERS: Family Medicine
DX: R51.9 Headache, unspecified (principal); H11.32 Conjunctival hemorrhage, left eye
CPT/HCPCS: J1100; J1885; J2405; J3475

== ENCOUNTER 2024-04-23 18:09 | Emergency (ER) | payer OTHER ==
[~2024-04-23] VITALS: Ht 157.5 cm; Wt 96.4 kg
[2024-04-23] MEDS ORDERED: HALOPERIDOL LACTATE 5 MG/ML SDV IV ONE (19:30)
[2024-04-23] MEDS ORDERED: KETOROLAC TROMETHAMINE 30 MG/ML SDV IV ONE (19:35)
[2024-04-23] MEDS ORDERED: SODIUM CHLORIDE 0.9% 1,000 ML IV ONE (19:35)
[2024-04-23 20:15] LABS: BASO% 0.8 % (0-3); EOS% 3.8 % (0-8); HEMATOCRIT 45.2 % (37.0-47.0); HEMOGLOBIN 14.9 g/dl (12.0-16.0); IMMATURE GRANULOCYTES 0.1 % (0.0-5.0); LYMPH% 41.8 % (15-41); MEAN CELL VOLUME 91.1 fL CALC (80.0-100.0); MONO% 6.2 % (2-13); NEUT# 3.57 thou/uL (2.00-7.15); NEUT% 47.3 % (42-76); RED BLOOD COUNT 4.96 mill/uL (4.20-5.60); RED CELL DISTRI WIDTH 12.2 % (11.5-15.5)
[2024-04-23 20:27] LABS: BILIRUBIN, TOTAL 0.6 mg/dL (0.02-1.3); CREATININE 0.8 mg/dL (0.5-1.0); POTASSIUM 4.3 mmol/l (3.5-5.1); TOTAL PROTEIN 8.3 g/dL (6.3-8.2)
[2024-04-23] MEDS ORDERED: TRAMADOL HYDROC50 M1 PO (20:33)
[2024-04-23] MEDS ORDERED: ONDANSETRON4 MG PO (20:33)
[2024-04-23 21:34] VITALS: BP 124/74
== END 2024-04-23 21:34 | disposition home or self-care (01) ==
LOC: ED 18:09 → ED-I 19:28 → ED 19:28 → ED-I 20:08 → ED 21:34
PROVIDERS: Family Medicine
DX: R51.9 Headache, unspecified (principal); F17.200 Nicotine dependence, unspecified, uncomplicated
CPT/HCPCS: J1100; J1630

== ENCOUNTER 2024-06-06 08:03 | Emergency (ER) | payer OTHER ==
[2024-06-06] VITALS (9 sets, daily range): BP systolic 100–120; BP diastolic 63–81
[~2024-06-06] VITALS: Ht 157.5 cm; Wt 90.3 kg
[~2024-06-06 08:03] MED LIST changes: +TRAMADOL HYDROC50 M1 PO
[2024-06-06] MEDS ORDERED: HYDROcodone 5 MG/Acetaminophen 325 MG/COMBO PO ONE (10:30)
[2024-06-06] MEDS ORDERED: KETOROLAC TROMETHAMINE 15 MG/ML SDV IM ONE (10:30)
== END 2024-06-06 11:57 | disposition home or self-care (01) ==
LOC: ED 08:03
DX: M25.571 Pain in right ankle and joints of right foot (principal); F17.200 Nicotine dependence, unspecified, uncomplicated
CPT/HCPCS: J1885